=== PATIENT | female | born 1970 | race Two or more races ===

== ENCOUNTER 2024-07-17 07:06 | Emergency (ER) | payer OTHER ==
[~2024-07-17] VITALS: Ht 160 cm; Wt 126.6 kg
[2024-07-17 07:20] VITALS: O2SAT 97
[2024-07-17 07:56] LABS: BASOPHILS # (AUTO) 0.1 K/UL (0.0-0.2); BASOPHILS % (AUTO) 0.7 % (0.0-2.0); EOSINOPHILS # (AUTO) 0.4 K/uL (0.0-0.7); EOSINOPHILS % (AUTO) 2.9 % (0.0-7.0); HEMATOCRIT 27.7 % (31.2-41.9); HEMOGLOBIN 9.2 g/dL (10.9-14.3); LYMPHOCYTES # (AUTO) 1.4 K/uL (0.8-4.8); LYMPHOCYTES % (AUTO) 10.7 % (20.5-51.5); MEAN CORPUSCULAR HEMOGLOBIN 27.1 uug (24.7-32.8); MEAN CORPUSCULAR HGB CONC 33 g/dL (32.3-35.6); MEAN CORPUSCULAR VOLUME 81.4 fL (75.5-95.3); MONOCYTES # (AUTO) 0.9 K/uL (0.1-1.30); MONOCYTES % (AUTO) 6.9 % (0.0-11.0); NEUTROPHILS # (AUTO) 10.1 K/uL (1.8-8.9); NEUTROPHILS % (AUTO) 78.8 % (38.5-71.5); PLATELET COUNT (AUTO) 297 K/uL (179-408); RED CELL DISTRIBUTION WIDTH 16.9 % (12.3-17.7); WHITE BLOOD COUNT (AUTO) 12.8 K/uL (3.8-11.8)
[2024-07-17 07:59] LABS: DIFFERENTIAL COMMENT 1
[2024-07-17 08:10] LABS: ALBUMIN 3.1 g/dL (3.4-5.0); BILIRUBIN,DIRECT 0.1 mg/dL (0.0-0.2); BILIRUBIN,TOTAL 0.6 mg/dL (0.2-1.0); CALCIUM 8.5 mg/dL (8.5-10.1); POTASSIUM 4.5 mmol/L (3.5-5.1); TOTAL PROTEIN, SERUM 7.5 g/dL (6.4-8.2)
[2024-07-17] MEDS ORDERED: BACITRACIN ZINC OINT 15 GM TUBE ONE (08:19)
[2024-07-17] MEDS ORDERED: AMOXICILLIN-CLAVUL 875-125MG TABLET ONE (08:23)
[2024-07-17] MEDS ORDERED: AMOX-430 PO (08:25)
[2024-07-17] MEDS ORDERED: FLAS1EAC2 TP (08:29)
[2024-07-17] MEDS ORDERED: FLAS1KIT2 TP (08:29)
[2024-07-17] MEDS: BACITRACIN ZINC OINT 15 GM TUBE TOP ONE (08:31)
[2024-07-17] MEDS: AMOXICILLIN-CLAVUL 875-125MG TABLET PO ONE (08:33)
== END 2024-07-17 08:34 | disposition home or self-care (01) ==
LOC: ER 07:07
DX: S80.02XA Contusion of left knee, initial encounter (principal); E11.22 Type 2 diabetes mellitus with diabetic chronic kidney disease; N18.6 End stage renal disease; Z99.2 Dependence on renal dialysis; Z79.4 Long term (current) use of insulin; Z79.899 Other long term (current) drug therapy; V09.9XXA Pedestrian injured in unspecified transport accident, initial encounter; Y93.89 Activity, other specified; Y92.89 Other specified places as the place of occurrence of the external cause; Y99.8 Other external cause status
CPT/HCPCS: 36415; 85025; A4606; A4663

== ENCOUNTER 2024-08-15 22:53 | Inpatient (IN) | payer OTHER ==
[~2024-08-15] VITALS: Ht 170.2 cm; Wt 127.5 kg
[~2024-08-15 22:53] MED LIST: AMOX-430 PO; FLAS1EAC2 TP; FLAS1KIT2 TP
[2024-08-15] MEDS ORDERED: VANCOMYCIN IV 200 ML ONE (23:44)
[2024-08-15 23:54] LABS: BASOPHILS # (AUTO) 0.1 K/UL (0.0-0.2); BASOPHILS % (AUTO) 0.6 % (0.0-2.0); EOSINOPHILS # (AUTO) 0.4 K/uL (0.0-0.7); EOSINOPHILS % (AUTO) 3.6 % (0.0-7.0); HEMATOCRIT 27.8 % (31.2-41.9); HEMOGLOBIN 9.1 g/dL (10.9-14.3); LYMPHOCYTES # (AUTO) 1.7 K/uL (0.8-4.8); LYMPHOCYTES % (AUTO) 14.9 % (20.5-51.5); MEAN CORPUSCULAR HEMOGLOBIN 27.1 uug (24.7-32.8); MEAN CORPUSCULAR HGB CONC 33 g/dL (32.3-35.6); MEAN CORPUSCULAR VOLUME 82.8 fL (75.5-95.3); MONOCYTES # (AUTO) 0.8 K/uL (0.1-1.30); MONOCYTES % (AUTO) 6.6 % (0.0-11.0); NEUTROPHILS # (AUTO) 8.6 K/uL (1.8-8.9); NEUTROPHILS % (AUTO) 74.3 % (38.5-71.5); PLATELET COUNT (AUTO) 320 K/uL (179-408); RED BLOOD CELL COUNT(AUTO) 3.36 MIL/uL (3.63-4.92); RED CELL DISTRIBUTION WIDTH 17.5 % (12.3-17.7); WHITE BLOOD COUNT (AUTO) 11.6 K/uL (3.8-11.8)
[2024-08-15] MEDS: VANCOMYCIN IV 1,000 MG in IV DEXTROSE 5% 250 ML IV ONE (23:57)
[2024-08-16 00:27] LABS: MAGNESIUM 2.1 mg/dL (1.8-2.4); PHOSPHOROUS 3.3 mg/dL (2.5-4.9)
[2024-08-16 00:30] LABS: ALBUMIN 2.9 g/dL (3.4-5.0); BILIRUBIN,DIRECT 0.1 mg/dL (0.0-0.2); BILIRUBIN,TOTAL 0.4 mg/dL (0.2-1.0); CALCIUM 8.3 mg/dL (8.5-10.1); CREATININE 5.9 mg/dL (0.6-1.3); POTASSIUM 3.3 mmol/L (3.5-5.1); TOTAL PROTEIN, SERUM 7.9 g/dL (6.4-8.2)
[2024-08-16] MEDS ORDERED: ATOR10TA PO (02:58)
[2024-08-16] MEDS ORDERED: SEVE800T28 PO (02:58)
[2024-08-16] MEDS ORDERED: INSU3INS6 SQ (02:58)
[2024-08-16] MEDS ORDERED: GLIP10TA11 PO (02:58)
[2024-08-16] MEDS ORDERED: CITA20TA16 PO (02:58)
[2024-08-16] MEDS ORDERED: SEMA1PEN SQ (02:58)
[2024-08-16] MEDS ORDERED: AMLO10TA59 PO (02:58)
[2024-08-16] MEDS ORDERED: CARV25TA2 PO (02:58)
[2024-08-16] MEDS ORDERED: ISOS60TA72 PO (02:58)
[2024-08-16] MEDS ORDERED: ONDANSETRON 4 MG/2 ML VIAL IV PRN (03:15)
[2024-08-16] MEDS ORDERED: MAGNESIUM HYDROXIDE 30 ML LIQUID UDC PO PRN (03:15)
[2024-08-16] MEDS ORDERED: DEXTROSE 50% 50 ML DISP.SYRIN IV PRN (03:15)
[2024-08-16] MEDS ORDERED: REMEDY ESSENTIAL ZINC PASTE 113 GM TP PRN (03:15)
[2024-08-16] MEDS ORDERED: ACETAMINOPHEN 500 MG TABLET ONE (04:42)
[2024-08-16 07:39] VITALS: BP 145/62; TEMP 98.1; O2SAT 96
[2024-08-16] MEDS: BLOOD SUGAR DIAGNOSTIC 1 EACH STRIP VI SCH (08:21)
[2024-08-16 09:34] LABS: CALCIUM 8.5 mg/dL (8.5-10.1); CREATININE 6.9 mg/dL (0.6-1.3); POTASSIUM 3.9 mmol/L (3.5-5.1)
[2024-08-16] MEDS: CITALOPRAM 20 MG TABLET PO SCH (10:33)
[2024-08-16] MEDS: AMLODIPINE 10 MG TABLET PO SCH (10:33)
[2024-08-16 11:53] VITALS: BP 129/49; TEMP 98.5; O2SAT 96
[2024-08-16] MEDS: SEVELAMER CARBONATE 800 MG TABLET PO SCH (12:28)
[2024-08-16] MEDS: SODIUM HYPOCHLORITE 0.125% (QUARTER STRENGTH) 473 ML BOTTLE TP SCH (14:05)
[2024-08-16 16:20] VITALS: BP 148/47; TEMP 97.6; O2SAT 96
[2024-08-16] MEDS: CARVEDILOL 25 MG TABLET PO SCH (17:38)
[2024-08-16] MEDS: ISOSORBIDE MONONITRATE 60 MG TAB.SR.24H PO SCH (17:38)
[2024-08-16 19:35] VITALS: BP 127/73; TEMP 98.1; O2SAT 97
[2024-08-16] MEDS: ACETAMINOPHEN 325 MG TABLET PO PRN (21:59)
[2024-08-16] MEDS: ATORVASTATIN 40 MG TABLET PO SCH (21:59)
[2024-08-16] MEDS: INSULIN REGULAR, HUMAN 1000 UNIT/10 ML VIAL SQ PRN (22:04)
[2024-08-16] MEDS ORDERED: VANCOMYCIN IV 500 MG in IV DEXTROSE 5% 100 ML IV ONE (23:00)
[2024-08-17 05:07] LABS: HEPATITIS B SURFACE AB, QUAL Non Reactive (.); HEPATITIS B SURFACE AG Negative (Negative)
[2024-08-17] MEDS: VANCOMYCIN IV 500 MG in IV DEXTROSE 5% 100 ML IV PRN (05:33)
[2024-08-17 06:14] VITALS: BP 115/46; TEMP 97.9; O2SAT 99
[2024-08-17 08:00] VITALS: BP 125/61; TEMP 98.2; O2SAT 100
[2024-08-17 08:04] LABS: BASOPHILS % (AUTO) 0.6 % (0.0-2.0); DIFFERENTIAL COMMENT 0; EOSINOPHILS # (AUTO) 0.3 K/uL (0.0-0.7); EOSINOPHILS % (AUTO) 3.8 % (0.0-7.0); HEMATOCRIT 29.9 % (31.2-41.9); HEMOGLOBIN 9.8 g/dL (10.9-14.3); LYMPHOCYTES # (AUTO) 1.4 K/uL (0.8-4.8); LYMPHOCYTES % (AUTO) 15.7 % (20.5-51.5); MEAN CORPUSCULAR HGB CONC 33 g/dL (32.3-35.6); MEAN CORPUSCULAR VOLUME 85.5 fL (75.5-95.3); MONOCYTES # (AUTO) 0.5 K/uL (0.1-1.30); MONOCYTES % (AUTO) 6.1 % (0.0-11.0); NEUTROPHILS # (AUTO) 6.5 K/uL (1.8-8.9); NEUTROPHILS % (AUTO) 73.8 % (38.5-71.5); PLATELET COUNT (AUTO) 271 K/uL (179-408); RED CELL DISTRIBUTION WIDTH 18.2 % (12.3-17.7); WHITE BLOOD COUNT (AUTO) 8.8 K/uL (3.8-11.8)
[2024-08-17 08:07] LABS: CALCIUM 8.2 mg/dL (8.5-10.1); CREATININE 6.2 mg/dL (0.6-1.3); POTASSIUM 3.9 mmol/L (3.5-5.1)
[2024-08-17 09:04] LABS: MAGNESIUM 2.5 mg/dL (1.8-2.4); PHOSPHOROUS 4.4 mg/dL (2.5-4.9)
[2024-08-17 12:30] VITALS: BP 136/65; TEMP 97.4; O2SAT 100
[2024-08-17 19:00] VITALS: BP 150/75; TEMP 98.6; O2SAT 95
[2024-08-18 05:52] VITALS: BP 160/70; TEMP 97.9; O2SAT 97
[2024-08-18 06:00] VITALS: BP 134/65; TEMP 98.1; O2SAT 95
[2024-08-18 06:58] LABS: BASOPHILS # (AUTO) 0.1 K/UL (0.0-0.2); BASOPHILS % (AUTO) 0.7 % (0.0-2.0); EOSINOPHILS # (AUTO) 0.4 K/uL (0.0-0.7); EOSINOPHILS % (AUTO) 4.3 % (0.0-7.0); HEMATOCRIT 25.6 % (31.2-41.9); HEMOGLOBIN 8.8 g/dL (10.9-14.3); LYMPHOCYTES # (AUTO) 1.6 K/uL (0.8-4.8); LYMPHOCYTES % (AUTO) 17.2 % (20.5-51.5); MEAN CORPUSCULAR HEMOGLOBIN 28.3 uug (24.7-32.8); MEAN CORPUSCULAR HGB CONC 35 g/dL (32.3-35.6); MEAN CORPUSCULAR VOLUME 82.2 fL (75.5-95.3); MONOCYTES # (AUTO) 0.6 K/uL (0.1-1.30); MONOCYTES % (AUTO) 6.9 % (0.0-11.0); NEUTROPHILS # (AUTO) 6.5 K/uL (1.8-8.9); NEUTROPHILS % (AUTO) 70.9 % (38.5-71.5); PLATELET COUNT (AUTO) 287 K/uL (179-408); RED BLOOD CELL COUNT(AUTO) 3.12 MIL/uL (3.63-4.92); RED CELL DISTRIBUTION WIDTH 17.1 % (12.3-17.7); WHITE BLOOD COUNT (AUTO) 9.2 K/uL (3.8-11.8)
[2024-08-18 07:14] LABS: DIFFERENTIAL COMMENT 1
[2024-08-18 07:38] LABS: ALBUMIN 2.9 g/dL (3.4-5.0); BILIRUBIN,TOTAL 0.6 mg/dL (0.2-1.0); CALCIUM 8.4 mg/dL (8.5-10.1); MAGNESIUM 3.1 mg/dL (1.8-2.4); PHOSPHOROUS 6.3 mg/dL (2.5-4.9); POTASSIUM 4.4 mmol/L (3.5-5.1); TOTAL PROTEIN, SERUM 7.3 g/dL (6.4-8.2)
[2024-08-18 07:44] LABS: CREATININE 8.7 mg/dL (0.6-1.3)
[2024-08-18 11:50] VITALS: BP 136/58; TEMP 97.9; O2SAT 96
[2024-08-18 15:50] VITALS: BP 122/48; TEMP 97.9; O2SAT 99
[2024-08-18 19:30] VITALS: BP 149/62; TEMP 98.4; O2SAT 97
[2024-08-18] MEDS: VANCOMYCIN IV 500 MG in IV DEXTROSE 5% 100 ML IV ONE (21:36)
[2024-08-19 06:00] VITALS: BP 144/62; TEMP 98.7; O2SAT 95
[2024-08-19 08:07] VITALS: BP 140/62
[2024-08-19] MEDS ORDERED: LEVO500T90 PO (11:22)
== END 2024-08-19 13:06 | disposition home health service (06) | DRG 364 ==
LOC: ER 23:05 → MEDSURG3 08-16 02:50
PROVIDERS: ATTEND Nurse Practitioner Acute Care
PROC: 0KBR0ZZ Excision of Left Upper Leg Muscle, Open Approach (ICD-10-PCS; 2024-08-16)
PROC: 5A1D70Z Performance of Urinary Filtration, Intermittent, Less than 6 Hours Per Day (ICD-10-PCS; principal; 2024-08-18)
PROC: 2W1RX6Z Compression of Left Lower Leg using Pressure Dressing (ICD-10-PCS; principal; 2024-08-18)
DX: E10.622 Type 1 diabetes mellitus with other skin ulcer (principal); L97.809 Non-pressure chronic ulcer of other part of unspecified lower leg with unspecified severity; I12.0 Hypertensive chronic kidney disease with stage 5 chronic kidney disease or end stage renal disease; E87.1 Hypo-osmolality and hyponatremia; D63.1 Anemia in chronic kidney disease; I96 Gangrene, not elsewhere classified; N18.6 End stage renal disease; E10.52 Type 1 diabetes mellitus with diabetic peripheral angiopathy with gangrene; E10.22 Type 1 diabetes mellitus with diabetic chronic kidney disease; E78.5 Hyperlipidemia, unspecified; B96.4 Proteus (mirabilis) (morganii) as the cause of diseases classified elsewhere; S81.012S Laceration without foreign body, left knee, sequela; L08.9 Local infection of the skin and subcutaneous tissue, unspecified; L03.116 Cellulitis of left lower limb; V89.2XXS Person injured in unspecified motor-vehicle accident, traffic, sequela; E66.01 Morbid (severe) obesity due to excess calories; Z68.41 Body mass index [BMI] 40.0-44.9, adult; Z79.4 Long term (current) use of insulin; Z99.2 Dependence on renal dialysis
CPT/HCPCS: 36415; 73560; 83735; 83970; 84100; 85025; 85730; 86706; 87040; 87340; 90937; A4606; A4663; A6213; A9150; G0378; J1815; J3370

== ENCOUNTER 2024-10-27 21:56 | Emergency (ER) | payer OTHER ==
[~2024-10-27] VITALS: Ht 160 cm; Wt 104.3 kg
[~2024-10-27 21:56] MED LIST changes: +AMLO10TA59 PO; -AMOX-430 PO; +ATOR10TA PO; +CARV25TA2 PO; +CITA20TA16 PO; -FLAS1EAC2 TP; -FLAS1KIT2 TP; +GLIP10TA11 PO; +INSU3INS6 SQ; +ISOS60TA72 PO; +LEVO500T90 PO; +SEMA1PEN SQ; +SEVE800T28 PO
[2024-10-27 23:12] LABS: BASOPHILS # (AUTO) 0.1 K/UL (0.0-0.2); BASOPHILS % (AUTO) 0.8 % (0.0-2.0); EOSINOPHILS # (AUTO) 0.4 K/uL (0.0-0.7); EOSINOPHILS % (AUTO) 4.6 % (0.0-7.0); HEMATOCRIT 36.3 % (31.2-41.9); HEMOGLOBIN 11.8 g/dL (10.9-14.3); LYMPHOCYTES # (AUTO) 1.5 K/uL (0.8-4.8); LYMPHOCYTES % (AUTO) 15.9 % (20.5-51.5); MEAN CORPUSCULAR HEMOGLOBIN 28.5 uug (24.7-32.8); MEAN CORPUSCULAR HGB CONC 33 g/dL (32.3-35.6); MEAN CORPUSCULAR VOLUME 87.6 fL (75.5-95.3); MONOCYTES # (AUTO) 0.8 K/uL (0.1-1.30); MONOCYTES % (AUTO) 8.7 % (0.0-11.0); NEUTROPHILS # (AUTO) 6.6 K/uL (1.8-8.9); PLATELET COUNT (AUTO) 234 K/uL (179-408); RED BLOOD CELL COUNT(AUTO) 4.14 MIL/uL (3.63-4.92); RED CELL DISTRIBUTION WIDTH 15.5 % (12.3-17.7); WHITE BLOOD COUNT (AUTO) 9.4 K/uL (3.8-11.8)
[2024-10-27 23:13] LABS: DIFFERENTIAL COMMENT 1
[2024-10-27 23:18] LABS: CALCIUM 8.2 mg/dL (8.5-10.1); CREATININE 4.4 mg/dL (0.6-1.3); POTASSIUM 4.3 mmol/L (3.5-5.1)
[2024-10-27 23:30] LABS: ALBUMIN 3.2 g/dL (3.4-5.0); BILIRUBIN,TOTAL 0.3 mg/dL (0.2-1.0); TOTAL PROTEIN, SERUM 7.5 g/dL (6.4-8.2)
[2024-10-27 23:39] LABS: BILIRUBIN,DIRECT 0.1 mg/dL (0.0-0.2)
[2024-10-28] MEDS ORDERED: AZIT500T PO (00:25)
[2024-10-28] MEDS ORDERED: PROM118S5 PO (00:25)
[2024-10-28] MEDS ORDERED: PRED50TA PO (00:25)
[2024-10-28] MEDS ORDERED: AZITHROMYCIN 250 MG TABLET ONE (00:41)
[2024-10-28] MEDS ORDERED: ACETAMINOPHEN/CODEINE 120-12 MG PER 5 ML LIQUID UDC ONE (00:41)
[2024-10-28] MEDS ORDERED: predniSONE 50 MG TABLET ONE (00:41)
[2024-10-28] MEDS: predniSONE 50 MG TABLET PO ONE (00:45)
[2024-10-28] MEDS: AZITHROMYCIN 250 MG TABLET PO ONE (00:45)
[2024-10-28] MEDS: ACETAMINOPHEN/CODEINE 120-12 MG PER 5 ML LIQUID UDC PO ONE (00:47)
[2024-10-28 00:50] VITALS: BP 170/74; TEMP 98.4; O2SAT 97
== END 2024-10-28 00:52 | disposition home or self-care (01) ==
LOC: ER 21:56
DX: J18.9 Pneumonia, unspecified organism (principal); D63.1 Anemia in chronic kidney disease; E11.22 Type 2 diabetes mellitus with diabetic chronic kidney disease; E78.5 Hyperlipidemia, unspecified; I13.11 Hypertensive heart and chronic kidney disease without heart failure, with stage 5 chronic kidney disease, or end stage renal disease; N18.6 End stage renal disease; Z79.4 Long term (current) use of insulin; Z79.52 Long term (current) use of systemic steroids; Z79.84 Long term (current) use of oral hypoglycemic drugs; Z20.822 Contact with and (suspected) exposure to COVID-19; Z79.899 Other long term (current) drug therapy; Z99.2 Dependence on renal dialysis
CPT/HCPCS: 99285; 71045; 87426; 87804 ×2; 80076; 80048; 83880; 85025; 85730; 36415; 93005; J7512; A4606; A4663; Q0144

== ENCOUNTER 2024-12-19 22:39 | Emergency (ER) | payer OTHER ==
[~2024-12-19] VITALS: Ht 157.5 cm; Wt 129.7 kg
[~2024-12-19 22:39] MED LIST changes: +AZIT500T PO; +PRED50TA PO; +PROM118S5 PO
[2024-12-20 00:15] VITALS: O2SAT 96
[2024-12-20] MEDS ORDERED: ACETAMINOPHEN 500 MG TABLET ONE (00:20)
[2024-12-20] MEDS: ACETAMINOPHEN 500 MG TABLET PO ONE (00:25)
[2024-12-20 00:30] VITALS: O2SAT 99
[2024-12-20] MEDS ORDERED: IPRATROPIUM BROMIDE 0.5 MG/2.5 ML NEBU ONE (00:32)
[2024-12-20] MEDS ORDERED: ALBUTEROL SULFATE 2.5 MG/3 ML NEBU ONE (00:32)
[2024-12-20] MEDS: ALBUTEROL SULFATE 2.5 MG/ 0.5 ML NEBU NEB ONE (00:35)
[2024-12-20] MEDS: IPRATROPIUM BROMIDE 0.5 MG/2.5 ML NEBU NEB ONE (00:35)
[2024-12-20] MEDS ORDERED: GUAI5SYR PO (02:24)
[2024-12-20] MEDS ORDERED: FLUT16SP16 BNOSTRILS (02:24)
[2024-12-20] MEDS ORDERED: ALBU8.5H8 INH (02:24)
[2024-12-20] MEDS ORDERED: ALBU2.5V13 NEB (02:24)
[2024-12-20 02:30] VITALS: BP 130/59; TEMP 98.8; O2SAT 99
== END 2024-12-20 02:30 | disposition home or self-care (01) ==
LOC: ER 22:44
DX: J20.9 Acute bronchitis, unspecified (principal); B97.89 Other viral agents as the cause of diseases classified elsewhere; I12.0 Hypertensive chronic kidney disease with stage 5 chronic kidney disease or end stage renal disease; E11.22 Type 2 diabetes mellitus with diabetic chronic kidney disease; E66.01 Morbid (severe) obesity due to excess calories; N18.6 End stage renal disease; Z79.4 Long term (current) use of insulin; Z79.52 Long term (current) use of systemic steroids; Z79.84 Long term (current) use of oral hypoglycemic drugs; Z79.899 Other long term (current) drug therapy; Z99.2 Dependence on renal dialysis; Z20.822 Contact with and (suspected) exposure to COVID-19; Z68.43 Body mass index [BMI] 50.0-59.9, adult
CPT/HCPCS: 71045; A4606; A4663; A9150; J3590